=== PATIENT | male | born 1985 | race Caucasian/White ===

== ENCOUNTER 2019-03-10 11:45 | Emergency (ER) | payer BC, SELFPAY ==
--- NOTE | ~2019-03-10 | CT_ITS ---
EXAMINATION: CT abdomen pelvis wo con DATE: 03/10/2019 13:03 INDICATION: Right flank pain. Nausea. TECHNIQUE: Computed tomography (CT) of the abdomen and pelvis was performed without intravenous contr ast. Automated exposure control and iterative reconstruction technique were employed. The dose-length product was 761.11 mGy-cm. COMPARISON: None. FINDINGS: The visualized portions of the lung bases demonstrate mild atelectasis. No pleural effusion . The heart size is normal. No pericardial effusion. The liver, spleen, gallbladder, pancreas, and le ft adrenal gland are normal. There is a 2.0 cm mass in right adrenal gland measuring soft tissue atte nuation. There is mild right hydronephrosis and hydroureter. There is a 2 mm stone at right ureterove sicular junction. The left kidney is normal. There are no dilated loops of bowel. There is diverticul osis of the colon without evidence of diverticulitis. The appendix is normal. There are no pathologic ally enlarged lymph nodes. There is no free intraperitoneal fluid. There is lumbar levoscoliosis and mild spondylosis. IMPRESSION: 1. 2 mm stone at right ureterovesicular junction with mild right hydronephrosis and hydroureter. 2. 2.0 cm right adrenal mass. In the absence of known malignancy, this finding is likely an adenoma. Reviewed, dictated and finalized at location A. [facility] IMPRESSION: 1. 2 mm stone at right ureterovesicular junction with mild right hydronephrosi s and hydroureter. 2. 2.0 cm right adrenal mass. In the absence of known malignancy, this finding is likely an adenoma.
--- NOTE | 2019-03-10 11:50 | ED.ABDPAIN ---
HPI - Abdominal Pain General Chief Complaint: Urogenital-Male Stated Complaint: possible kidney stone Time Seen by Provider: 03/10/19 11:50 Related Data Allergies Allergy/AdvReac Type Severity Reaction Status Date / Time No Known Allergies Allergy Verified 03/10/19 12:24 Review of Systems Constitutional: Constitutional: Denies chills and Denies fever(s) Eyes: Eyes: Reports no additional eye complaints ENT: Reports system reviewed and no additional complaints, except as documented Cardiovascular: Cardiovascular: Reports no additional cardiovascular complaints Respiratory: Respiratory: Reports no additional respiratory complaints Gastrointestinal: Gastrointestinal: Reports abdominal pain (Mild Right), Denies diarrhea, Denies nausea and Denies vomiting Genitourinary: Genitourinary: Reports testicular pain (Right) Neurologic: Reports system reviewed and no additional complaints, except as documented Allergic/Immunologic: Allergic/Immunologic: Reports no additional allergic/immunologic complaints PMFSH Surgical History Surgical History (Updated 03/10/19 @ 12:52 by Anibal Hutchins MD) No history of previous surgery Family History Family History (Updated 03/10/19 @ 13:35 by Anibal Hutchins MD) Sibling Kidney stones Social History Social History (Updated 03/10/19 @ 12:53 by Anibal Hutchins MD) Smoking status: Never smoker Alcohol intake: never Substance use: never Exam Const: General: no acute distress Nutritional Appearance: well nourished Orientation/consciousness: patient oriented x3 HENMT: Head: normal to inspection Ears: external ears normal Mouth: Yes lip normal and Yes moist mucous membranes Eyes: Conjunctivae: conjunctivae normal Pupils: Equal, round and reactive pupils present EOM: EOMs intact bilaterally Neck: Neck: normal visual inspection Resp: Effort & Inspection: normal respiratory effort Auscultation: clear to auscultation bilaterally Cardio: Rate: regular rate Rhythm: regular rhythm Heart sounds: no murmurs GI: GI Palp: Yes Soft to palpation, Yes Tenderness to palpation present (GI) and No Guarding due to palpation present (GI) Auscultation: normal bowel sounds Back/Spine/Pelvis: Back: CVA tenderness (right) Skin: General skin exam: normal color Rashes: no rashes Neuro: General: patient oriented x3 and moves all extremities Speech: normal speech Extrem: General: normal to inspection and no clubbing, cyanosis or edema Psych: Appearance: grossly normal and well kempt Mental Status: mental status grossly normal Affect: normal affect Attitude: cooperative Thought content: Yes Normal thought content present Course Vital Signs Vital signs: Vital Signs Temperature 36.5 C 03/10/19 12:10 Pulse Rate 74 03/10/19 12:10 Respiratory Rate 03/10/19 12:10 Blood Pressure 141/95 H 03/10/19 12:10 Pulse Oximetry 99 03/10/19 12:10 Temperature 36.5 C 03/10/19 12:10 Pulse Rate 74 03/10/19 12:10 Respiratory Rate 03/10/19 12:10 Blood Pressure 119/60 03/10/19 13:31 Pulse Oximetry 99 03/10/19 12:10 MDM - Abdominal Pain Lab Data Result diagrams: 03/10/19 12:15 03/10/19 12:15 Labs: Lab Results 03/10/19 03/10/19 03/10/19 Range/Units 11:57 12:15 12:15 WBC 13.7 H (4.8-10.8) K/mm3 RBC 4.60 L (4.70-6.10) M/mm3 Hgb 14.7 (14.0-18.0) g/dL Hct 40.6 (40.0-54.0) % MCV 88.3 (78.0-102.0) fL MCH 32.0 H (27.0-31.0) pg MCHC 36.2 H (32.0-36.0) g/dL RDW 11.9 (11.6-14.4) % Plt Count 219 (150-420) K/mm3 MPV 9.8 (8.7-11.0) fl Immature Gran % (Auto) 0.4 H (0.0-0.0) % Neut % (Auto) 90.2 H (50.0-70.0) % Lymph % (Auto) 4.9 L (18.0-42.0) % [place] % (Auto) 4.4 (2.0-11.0) % Eos % (Auto) 0.0 L (1.0-6.0) % Baso % (Auto) 0.1 (0.0-1.0) % Lymph # (Auto) 0.67 L (1.10-4.50) K/mm3 [place] # (Auto) 0.60 (0.10-0.90) K/mm3 Eos # (Auto) 0.00
[2019-03-10 12:01] LABS: Add Urine Microscopic? YES; Appearance Urine Cloudy (Clear); Bilirubin Urine Negative (Negative); Blood Urine Negative (Negative); Color Urine Yellow (Yellow); Glucose Urine UA Negative (Negative); Ketones Urine 1+ (Negative); Leukocyte Esterase Ur Negative LEU/UL (Negative); Nitrate Urine Negative (Negative); Protein Urine Negative (Negative); Specific Grav Ur >= 1.030 (1.010-1.020); Urobilinogen Urine 0.2 mg/dL (0.2-1.0); pH Urine 5.5 (5.0-8.0)
[2019-03-10] MEDS: KETOROLAC 30 MG/ML VIAL (*BKC) IV PUSH (12:08)
[2019-03-10 12:09] LABS: Amorphous Sediment Urine Moderate; Bacteria Urine 3+ /hpf; RBC Urine 0-2 /hpf (0-2); Squamous Epithelial Cell Urine None seen /hpf (Few); WBC Urine 0-3 /hpf (0-3)
[2019-03-10 12:10] VITALS: BP 141/95; PULSE 74; RESP 20; TEMP 36.5; O2SAT 99
[2019-03-10 12:27] LABS: Basophils Absolute Auto 0.02 K/mm3 (0.00-0.10); Basophils Percent Auto 0.1 % (0.0-1.0); Hematocrit 40.6 % (40.0-54.0); Hemoglobin 14.7 g/dL (14.0-18.0); Immature Granulocyte Absolute 0.05 K/mm3 (0.00-0.00); Immature Granulocyte Percent A 0.4 % (0.0-0.0); Lymphocytes Absolute Auto 0.67 K/mm3 (1.10-4.50); Lymphocytes Percent Auto 4.9 % (18.0-42.0); Mean Corpuscular HGB Conc 36.2 g/dL (32.0-36.0); Mean Corpuscular Volume 88.3 fL (78.0-102.0); Mean Platelet Volume 9.8 fl (8.7-11.0); Monocytes Percent Auto 4.4 % (2.0-11.0); Neutrophils Absolute Auto 12.4 K/mm3 (1.7-7.2); Neutrophils Percent Auto 90.2 % (50.0-70.0); Platelet Count Result 219 K/mm3 (150-420); Red Cell Distribution Width 11.9 % (11.6-14.4); White Blood Count 13.7 K/mm3 (4.8-10.8)
[2019-03-10 12:37] LABS: Blood Urea Nitrogen 22 mg/dL (7-18); Calcium 8.9 mg/dL (8.5-10.1); Carbon Dioxide 24 mmol/L (21-32); Chloride 100 mmol/L (98-108); Estimated Glomerular Filt Rate > 60; Glucose 121 mg/dL (70-99); Osmolality Calculated 282 mOsm/kg (285-295); Sodium 134 mmol/L (136-145)
[2019-03-10 12:46] LABS: CRP < 0.2 mg/dL (0.0-0.9)
[2019-03-10 13:31] VITALS: BP 119/60
== END 2019-03-10 13:32 | disposition home or self-care (01) ==
PROVIDERS: Emergency Provider Emergency Medicine; PCP Family Medicine
DX: N20.1 Calculus of ureter (principal)
CPT/HCPCS: 36415; 74176; 80048; 81001; 85025; 86140; 96374; 99283; 99284; J1885